=== PATIENT | female | born 2000 | race African-American/Black ===

== ENCOUNTER 2022-05-29 12:40 | Emergency (ER) | payer OTHER ==
[~2022-05-29] VITALS: Ht 160 cm; Wt 61.0 kg
[2022-05-29] MEDS ORDERED: ACETAMINOPHEN 325MG TABLET PO ONE (13:30)
[2022-05-29] MEDS ORDERED: IBUPROFEN 600MG TABLET PO ONE (14:00)
[2022-05-29 14:10] VITALS: BP 126/80
[2022-05-29] MEDS ORDERED: ALBU6.7H3 INH (15:34)
[2022-05-29] MEDS ORDERED: ACET-2708 MT (15:34)
== END 2022-05-29 15:46 | disposition home or self-care (01) ==
LOC: ER 12:40
DX: B34.9 Viral infection, unspecified (principal); J45.909 Unspecified asthma, uncomplicated; Z20.822 Contact with and (suspected) exposure to COVID-19; Z91.011 Allergy to milk products
CPT/HCPCS: 81025; 87070; 87426; 87430; 99283; C9803

== ENCOUNTER 2023-08-12 09:27 | Emergency (ER) | payer OTHER ==
[~2023-08-12] VITALS: Ht 162.6 cm; Wt 56.0 kg
[~2023-08-12 09:27] MED LIST: ACET-2708 MT; ALBU6.7H3 INH
[2023-08-12 09:39] VITALS: BP 121/91; TEMP 98.3
[2023-08-12] MEDS ORDERED: PREDNISONE 20MG TABLET PO ONE (11:15)
[2023-08-12] MEDS ORDERED: IPRATROPIUM/ALBUTEROL 0.5-3(2.5)MG/3ML NEB HHN ONE (11:15)
[2023-08-12 12:00] VITALS: PULSE 72; RESP 20; O2SAT 99
[2023-08-12] MEDS ORDERED: P50 MT (13:09)
== END 2023-08-12 14:08 | disposition home or self-care (01) ==
LOC: ER 09:27
DX: J45.901 Unspecified asthma with (acute) exacerbation (principal); Z91.011 Allergy to milk products; Z98.890 Other specified postprocedural states
CPT/HCPCS: 81025; 94640; 99283; J7512; Z7610 ×3

== ENCOUNTER 2023-09-28 12:23 | Emergency (ER) | payer OTHER ==
[~2023-09-28] VITALS: Ht 162.6 cm; Wt 46.0 kg
[~2023-09-28 12:23] MED LIST changes: +P50 MT
[2023-09-28 13:07] VITALS: BP 103/81; PULSE 91; RESP 16; TEMP 98.6; O2SAT 100
[2023-09-28 16:39] LABS: BASOPHILS % 0.4 % (0.0-2.0); EOSINOPHILS % 1.2 % (0.0-5.0); HEMATOCRIT. 38.4 % (36.0-48.0); HEMOGLOBIN. 12.9 g/dL (12.0-16.0); LYMPHOCYTES % 19.4 % (20.0-50.0); MEAN CORPUSCULAR HEMOGLOBIN 28.4 pg (28.0-32.0); MEAN CORPUSCULAR HGB CONC 33.6 g/dL (31.0-37.0); MEAN CORPUSCULAR VOLUME 84.7 fL (81.0-99.0); MONOCYTES % 7.6 % (2.0-8.0); NEUTROPHILS % 71.4 % (40.0-76.0); PLATELET 215 x1000/uL (130-400); RED BLOOD CELL COUNT 4.53 mill/uL (4.2-5.4); RED CELL DISTRIBUTION WIDTH 13.1 % (11.6-14.6); WHITE BLOOD COUNT 8.4 x1000/uL (4.5-11.0)
[2023-09-28 16:49] LABS: ALANINE AMINOTRANSFERASE 8 IU/L (10-49); ALBUMIN 4.8 g/dL (3.2-4.8); ASPARTATE AMINOTRANSFERASE 14 IU/L (<34); BILIRUBIN TOTAL 0.4 mg/dL (0.1-1.0); CALCIUM 9.6 mg/dL (8.7-10.4); CARBON DIOXIDE 26 mEq/L (21-32); CHLORIDE 107 mEq/L (98-107); CREATININE 0.8 mg/dL (0.6-1.0); GLUCOSE 106 mg/dL (70-105); POTASSIUM 3.2 mEq/L (3.5-5.1); PROTEIN TOTAL 7.7 g/dL (6.0-8.3); SODIUM 141 mEq/L (136-145); UREA NITROGEN BLOOD 15 mg/dL (9-23)
[2023-09-28 17:04] LABS: B-HCG QUANTITATIVE < 1 mIU/mL (<3)
[2023-09-28 17:56] LABS: CLARITY URINE TURBID (CLEAR); COLOR URINE YELLOW (YELLOW); GLUCOSE URINE NEGATIVE (NEGATIVE); KETONES URINE TRACE (NEGATIVE); LEUKOCYTE ESTERASE URINE 3+ (NEGATIVE); NITRITE URINE NEGATIVE (NEGATIVE); OCCULT BLOOD URINE 2+ (NEGATIVE); PROTEIN URINE 2+ (NEGATIVE); SPECIFIC GRAVITY URINE 1.019 (1.005-1.030); UROBILINOGEN URINE 0.2 E.U./dL (0.2-1.0)
[2023-09-28] MEDS ORDERED: NITR100C MT (18:05)
[2023-09-28] MEDS ORDERED: PHEN-910 MT (18:06)
[2023-09-28 18:24] LABS: BACTERIA URINE 2+; SQUAMOUS EPITHELIAL CELL URINE 1+ /lpf (RARE/1+)
[2023-09-28 18:25] LABS: WBC URINE TNTC /hpf (0-2)
== END 2023-09-28 18:30 | disposition left against medical advice (07) ==
LOC: ER 12:23
DX: N93.8 Other specified abnormal uterine and vaginal bleeding (principal); N39.0 Urinary tract infection, site not specified; J45.909 Unspecified asthma, uncomplicated; Z98.890 Other specified postprocedural states; Z91.011 Allergy to milk products
CPT/HCPCS: 36415; 76830; 76856; 80053; 81003; 81025; 84702; 85025; 86850; 86900; 87077; 87186; 99284